=== PATIENT | female | born 1965 | race Caucasian/White ===

== ENCOUNTER → 2017-01-03 | Outpatient (CLI) | payer BC ==
--- NOTE | 2017-01-03 12:34 | RAD ---
DATE: 01/03/2017 EXAM: DIGITAL SCREEN BILAT W/CAD HISTORY: Routine screening COMPARISON: 05/24/2015 This study was interpreted with the benefit of Computerized Aided Detection (CAD). The breast parenchyma shows scattered fibroglandular densities. Breast parenchyma level B. FINDINGS: No new or enlarging breast densities are seen. No suspicious microcalcifications are evident. IMPRESSION: Stable mammograms without evidence of malignancy. BI-RADS CATEGORY: 1 NEGATIVE RECOMMENDED FOLLOW-UP: 12M 12 MONTH FOLLOW-UP PQRS compliance statement: Patient information was entered into a reminder system with a target due date for the next mammogram. Mammography is a sensitive method for finding small breast cancers, but it does not detect them all and is not a substitute for careful clinical examination. A negative mammogram does not negate a clinically suspicious finding and should not result in delay in biopsying a clinically suspicious abnormality. "Our facility is accredited by the [employer] Mammography [employer]."
== END | disposition home or self-care (01) ==
LOC: MAMMO 11:09
PROVIDERS: ATTEND Obstetrics & Gynecology
DX: Z12.31 Encounter for screening mammogram for malignant neoplasm of breast (principal)
CPT/HCPCS: G0202; 77067

== ENCOUNTER → 2018-02-05 | Outpatient (CLI) | payer BC ==
--- NOTE | 2018-02-05 12:22 | RAD ---
DATE: 02/05/2018 EXAM: MAMMO EMERSON SCREENING BILATERAL HISTORY: Routine screening COMPARISON: 01/03/2017 This study was interpreted with the benefit of Computerized Aided Detection (CAD). Breast Density: SCATTERED The breast parenchyma shows scattered fibroglandular densities. Breast parenchyma level B. FINDINGS: 2-D and 3-D tomosynthesis imaging was performed in CC and MLO projections. No new or enlarging breast densities are seen. No suspicious microcalcifications are evident. IMPRESSION: Stable mammograms without evidence of malignancy. BI-RADS CATEGORY: 1 NEGATIVE RECOMMENDED FOLLOW-UP: 12M 12 MONTH FOLLOW-UP PQRS compliance statement: Patient information was entered into a reminder system with a target due date for the next mammogram. Mammography is a sensitive method for finding small breast cancers, but it does not detect them all and is not a substitute for careful clinical examination. A negative mammogram does not negate a clinically suspicious finding and should not result in delay in biopsying a clinically suspicious abnormality. "Our facility is accredited by the [employer] Mammography [employer]."
== END | disposition home or self-care (01) ==
LOC: MAMMO 11:26
PROVIDERS: ATTEND Obstetrics & Gynecology
DX: Z12.31 Encounter for screening mammogram for malignant neoplasm of breast (principal)
CPT/HCPCS: 77063; 77067

== ENCOUNTER → 2018-06-25 | Day surgery (SDC) | payer BC ==
[~2018-06-25] MED LIST: LIDOCAINE 1%/EPI 1:100,000 20 ML VIAL. INJ ONE; LIDOCAINE 2%/EPI 1:100,000 20 ML VIAL. IJ ONE
[2018-06-25 07:12] VITALS: BP 129/69
--- NOTE | 2018-06-25 08:18 | PDOC4 ---
Operative Note Operative Note Date: 06/25/2018 Preoperative diagnosis: Left forearm mass Postoperative diagnosis: Same Procedure: Excision of left forearm mass under local Surgeon: Rajan Specimen: The left forearm mass likely lipoma Dictation: Patient is a 52-year-old female with a small subcutaneous mass her left forearm is been getting larger and occasionally painful. Procedure of excision was explained to the patient in detail risk benefits were also discussed including bleeding infection alternatives to this procedure also discussed with the patient who seemed to understand and gave both verbal and written consent to have the procedure performed. Patient was taken to the minor was room placed the supine position left forearm was prepped and draped usual sterile fashion using ChloraPrep and area over the mass was injected with 1% lidocaine with epinephrine incision was made with 15 blade scalpel was carried down through the subcutaneous anus tissue exposing the small 2 cm lipomatous mass which was excised sharply and sent for pathology. The wound was then closed in a single layer of running 4-0 Monocryl subcuticular stitch Mastisol Steri-Strips and island dressing were applied. Patient tolerated procedure well was discharged home in stable condition. Estimated blood loss less than 5 mL ANASTACIA HIRSCH MD Jun 25, 2018 08:18
--- NOTE | 2018-07-07 09:13 | PDOC1 ---
History and Physical Date of Admission Date of Admission DATE: 06/25/18 TIME: 09:08 Identification/Chief Complaint Chief Complaint Left forearm mass Source Source: Patient History of Present Illness History of Present Illness 52-year-old female complaining of an enlarging left forearm mass occasionally is painful Past Medical History Cardiovascular: No pertinent hx Pulmonary: No pertinent hx GI: No pertinent hx Heme/Onc: No pertinent hx Hepatobiliary: No pertinent hx Psych: No pertinent hx Rheumatologic: No pertinent hx Infectious disease: No pertinent hx ENT: No pertinent hx Renal/: No pertinent hx Endocrine: No pertinent hx Dermatology: No pertinent hx Past Surgical History Past Surgical History: No pertinent history Family History Family History: No Significant Social History Smoke: No ALCOHOL: none Drugs: None Current Medications Current Medications Current Medications Lidocaine/ Epinephrine (LIDOCAINE 2%-EPI 1:100,000 multi-dose) 20 ml 1X ONCE IJ ; Start 06/25/18 at 07:15; Stop 06/25/18 at 07:16; Status Cancel Lidocaine/ Epinephrine (LIDOCAINE 1%-EPI 1:100,000 Multi-Dose) 20 ml 1X ONCE INJ ; Start 06/25/18 at 07:30; Stop 06/25/18 at 07:31; Status DC Lidocaine/ Epinephrine (LIDOCAINE 1%-EPI 1:100,000 Multi-Dose) 20 ml STK-MED ONCE INJ Last administered on 06/25/18at 07:55; Start 06/25/18 at 07:55; Stop 06/25/18 at 08:10; Status DC Allergies Allergies: Coded Allergies: ciprofloxacin (Verified Allergy, Intermediate, Rash, 06/24/18) ROS Skin: Yes Lumps Physical Exam General: Alert, Oriented X3, Cooperative, No acute distress HEENT: Atraumatic, PERRLA, EOMI Lungs: Clear to auscultation, Normal air movement Heart: RRR, no gallops, no murmurs Abdomen: Normal bowel sounds, Soft, No tenderness Rectal Exam: not examined Extremities: No edema Skin: Other (left forearm mass subcutaneous mildly tender to palpation no skin changes) VTE Prophylaxis Ordered VTE Prophylaxis Devices: No VTE Pharmacological Prophylaxi: No Assessment/Plan Assessment/Plan Left forearm mass plan excision under local ANASTACIA HIRSCH MD Jul 07, 2018 09:13
== END | disposition home or self-care (01) ==
LOC: SURG 07:04
PROVIDERS: ATTEND Surgery
DX: D17.22 Benign lipomatous neoplasm of skin and subcutaneous tissue of left arm (principal)
CPT/HCPCS: 25075; 88304; J3490

== ENCOUNTER → 2020-01-06 | Outpatient (CLI) | payer BC ==
[2018-06-25 07:12] VITALS: BP 129/69
--- NOTE | 2020-01-06 17:44 | RAD ---
DATE: 01/06/2020 3:37 PM EXAM: MAMMO EMERSON SCREENING BILATERAL HISTORY: Screening COMPARISON: 02/05/2018 Bilateral CC and MLO views of the breasts were performed. Bilateral breast tomosynthesis was performed in CC and MLO projections. This study was interpreted with the benefit of Computerized Aided Detection (CAD). FINDINGS: Breast Density: HETERO The breast parenchyma Is heterogeneously dense, which could reduce sensitivity of mammography. Breast parenchyma level C No suspicious masses, microcalcifications or architectural distortion is present to suggest malignancy in either breast. The visualized axillae are unremarkable. IMPRESSION: No mammographic evidence of malignancy. BI-RADS CATEGORY: 1 NEGATIVE RECOMMENDED FOLLOW-UP: 12M 12 MONTH FOLLOW-UP Annual screening mammography is recommended, unless clinically indicated sooner based on symptoms or change in physical exam. PQRS compliance statement: Patient information was entered into a reminder system with a target due date for the next mammogram. Mammography is a sensitive method for finding small breast cancers, but it does not detect them all and is not a substitute for careful clinical examination. A negative mammogram does not negate a clinically suspicious finding and should not result in delay in biopsying a clinically suspicious abnormality. "Our facility is accredited by the [employer] Mammography [employer]."
== END ==
LOC: MAMMO 15:36
PROVIDERS: ATTEND Obstetrics & Gynecology
DX: Z12.31 Encounter for screening mammogram for malignant neoplasm of breast (principal)
CPT/HCPCS: 77063; 77067

== ENCOUNTER → 2021-02-26 | Outpatient (CLI) | payer BC ==
[2018-06-25 07:12] VITALS: BP 129/69
--- NOTE | 2021-02-26 15:54 | RAD ---
BILATERAL DIGITAL SCREENING 2-D AND 3-D MAMMOGRAM INDICATION: Routine screening. COMPARISON: Prior studies including one of 01/06/2020. Interpretation was made using CAD. FINDINGS: Breast Density: B RIGHT BREAST: No suspicious masses, calcifications or areas of architectural distortion are seen. LEFT BREAST: No suspicious masses, calcifications or areas of architectural distortion are seen. IMPRESSION: 1. No imaging evidence of malignancy. ASSESSMENT: BI-RADS 1. Negative. RECOMMENDATION: Routine annual screening mammogram. The facility will notify the patient of the results via mail. Patient information will be entered int o the mammography reminder system with a target recall date for the next mammogram. A reminder letter will be generated by the facility. Electronically signed by: Ata Singh Jr., MD (02/26/2021 3:51 PM) [id number]
== END ==
LOC: MAMMO 14:47
PROVIDERS: ATTEND Family Medicine
DX: Z12.31 Encounter for screening mammogram for malignant neoplasm of breast (principal)
CPT/HCPCS: 77063; 77067

== ENCOUNTER → 2021-05-02 | Outpatient (CLI) | payer BC ==
[2018-06-25 07:12] VITALS: BP 129/69
--- NOTE | 2021-05-02 14:47 | KCIC ---
EXAM: Chest radiograph 05/02/2021 2:02 PM CLINICAL INDICATION: Left posterior chest wall pain. COMPARISON: None TECHNIQUE: PA and lateral view of the chest FINDINGS: The heart and mediastinum are normal. Lungs are well-expanded and clear. No consolidatio n, pleural effusion, or pneumothorax. Pulmonary vascularity is normal. There is very mild leftward c urvature of the thoracic spine. No acute osseous abnormality. IMPRESSION: No acute cardiopulmonary abnormality Electronically signed by: Priyanka Lewis MD (05/02/2021 2:45 PM) [id number]
== END ==
LOC: KCIC 13:58
PROVIDERS: ATTEND Family Medicine
DX: R07.89 Other chest pain (principal); M43.8X4 Other specified deforming dorsopathies, thoracic region
CPT/HCPCS: 71046